=== PATIENT | female | born 1980 | race African-American/Black ===

== ENCOUNTER 2017-08-07 10:55 | Emergency (ER) | payer OTHER ==
[~2017-08-07] VITALS: Ht 160 cm; Wt 76.2 kg
--- NOTE | ~2017-08-07 | EKG ---
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 : 1980 Requested By: Angela Mills Order Number: [id number] MD: Darian Paul Measurements Intervals [place] Rate: 77 P: 27 UT: 114 QRS: -4 QRSD: 177 T: -22 QT: 376 QTc: 426 Interpretive Statements Sinus rhythm Borderline short UT interval Abnrm T, anterolateral leads Compared to ECG 03/30/2015 11:05:44 No significant change was found Electronically Signed On 08-07-2017 15:43:42 CDT by Darian Paul [email or web address] <ELECTRONICALLY SIGNED> By: Darian Paul MD, [facility] 08/07/17 1543 1113 1113 Darian Paul MD, [facility] /EPI
[~2017-08-07 10:55] MED LIST: NORA-BE0.35 MG PO
[2017-08-07 11:16] LABS: URINE BILIRUBIN NEGATIVE (Negative); URINE BLOOD NEGATIVE (Negative); URINE CLARITY CLEAR; URINE COLOR YELLOW; URINE GLUCOSE-RANDOM* NEGATIVE (Negative); URINE KETONES NEGATIVE (Negative); URINE LEUKOCYTES NEGATIVE (Negative); URINE NITRITE NEGATIVE (Negative); URINE PROTEIN (DIPSTICK) NEGATIVE (Negative); URINE SPECIFIC GRAVITY 1.015 (1.005-1.035)
[2017-08-07] MEDS ORDERED: DEPO-PROVE150 MG/11 IM (11:20)
[2017-08-07 11:22] LABS: ABSOLUTE NEUTROPHILS 3.4 thou/uL (1.4-8.2); BASOPHILS 0.8 % (0.0-2.0); EOSINOPHILS 1.2 % (0.0-3.0); HEMATOCRIT 43.3 % (37.0-47.0); HEMOGLOBIN 14.1 gm/dL (12.0-15.0); LYMPHOCYTES 43.3 % (24.0-44.0); MCH 28.1 pg (26.0-34.0); MCHC 32.5 g/dL (28.0-37.0); MCV 86.3 fL (80.0-100.0); MONOCYTES 6.1 % (1.0-8.0); PLATELET COUNT 260 thou/uL (150-400); POLYS 48.6 % (36.0-66.0); RBC 5.01 mil/uL (4.20-5.00); RDW 13.6 % (10.5-14.5); WBC 6.9 thou/uL (4.0-11.0)
[2017-08-07 11:34] LABS: CALCIUM 9.6 mg/dL (8.5-10.1); CREATININE 0.8 mg/dL (0.6-1.0); POTASSIUM 3.7 mmol/L (3.5-5.1)
[2017-08-07 12:16] VITALS: BP 133/86
== END 2017-08-07 12:21 | disposition home or self-care (01) ==
LOC: ER 10:55
PROVIDERS: Emergency Medicine
DX: R51 Headache (principal); I10 Essential (primary) hypertension

== ENCOUNTER 2019-11-27 10:41 | Emergency (ER) | payer BC, OTHER ==
[~2019-11-27] VITALS: Ht 160 cm; Wt 84.4 kg
[~2019-11-27 10:41] MED LIST changes: +DEPO-PROVE150 MG/11 IM
[2019-11-27] MEDS ORDERED: METFORMIN HCL500 MG PO (10:48)
[2019-11-27 12:02] LABS: HEMATOCRIT 44.2 % (37.0-47.0); HEMOGLOBIN 14.3 gm/dL (12.0-15.0); MCHC 32.4 g/dL (28.0-37.0); MCV 86.4 fL (80.0-100.0); RBC 5.11 mil/uL (4.20-5.00); RDW 13.9 % (10.5-14.5); WBC 7.1 thou/uL (4.0-11.0)
[2019-11-27 12:23] LABS: ANION GAP 11 mmol/L (7-16); BUN 8 mg/dL (7-18); CALCIUM 9.3 mg/dL (8.5-10.1); CHLORIDE 106 mmol/L (98-107); CO2 24 mmol/L (21-32); CREATININE 0.7 mg/dL (0.6-1.0); GLUCOSE 116 mg/dL (74-106); POTASSIUM 3.6 mmol/L (3.5-5.1); SODIUM 141 mmol/L (136-145)
[2019-11-27 12:31] LABS: TROPONIN-I <0.06 ng/mL (<0.06)
[2019-11-27 13:25] VITALS: BP 146/100
--- NOTE | 2019-11-27 14:51 | EKG ---
[facility] [place] [address] ELECTROCARDIOGRAM REPORT Name: EMILIANO MARISACHINO LOWE Room #: [facility]#: [id number] Admission: 11/27/19 Attend Phys: Discharge: 11/27/19 Date of : 80 Report #: [id number] THIS REPORT FOR: cc: Louann Cook MD, Nora P. 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1980 Requested By: Tai Landin Order Number: [id number] MD: Britton Downs Measurements Intervals [place] Rate: 76 P: 20 MN: 134 QRS: -11 QRSD: 94 T: -34 QT: 374 QTc: 421 Interpretive Statements Sinus rhythm Low voltage, precordial leads Nonspecific T abnormalities, diffuse leads Compared to ECG 08/07/2017 11:13:15 Low QRS voltage now present T-wave abnormality now present Electronically Signed On 11-27-2019 14:51:27 CDT by Britton Downs [email or web address] <ELECTRONICALLY SIGNED> By: Britton Downs MD, FACC 11/27/19 1451 [id number] [id number] Britton Downs MD, FACC /EPI
== END 2019-11-27 13:26 | disposition home or self-care (01) ==
LOC: ER 10:41
PROVIDERS: Emergency Medicine
DX: G43.909 Migraine, unspecified, not intractable, without status migrainosus (principal); E11.9 Type 2 diabetes mellitus without complications; Z79.84 Long term (current) use of oral hypoglycemic drugs

== ENCOUNTER 2021-04-13 13:40 | Emergency (ER) | payer BC, OTHER ==
[~2021-04-13] VITALS: Ht 160 cm; Wt 78.5 kg
[~2021-04-13 13:40] MED LIST changes: +METFORMIN HCL500 MG PO
[2021-04-13 13:49] VITALS: BP 141/93
[2021-04-13] MEDS ORDERED: CEPHALEXIN500 MG PO (14:16)
== END 2021-04-13 14:35 | disposition home or self-care (01) ==
LOC: ER 13:40
DX: L03.116 Cellulitis of left lower limb (principal); Z79.84 Long term (current) use of oral hypoglycemic drugs